=== PATIENT | female | born 1955 | race Caucasian/White ===

== ENCOUNTER 2023-01-13 01:11 | Day surgery (SDC) | payer MEDICARE, OTHER, SELFPAY ==
[2023-01-06 15:27] VITALS: BMI 32.0
--- NOTE | 2023-01-13 09:34 | P.HP_ITS ---
History of Present Illness History of Present Illness Consent: Risks, benefits, and alternatives have been discussed and questions answered. Patient agrees to proceed with procedure. Chief complaint: neoplasm screening Narrative: Marlena Culp is a 67 year old female Presents for screening colonoscopy. Patient's current weight appetite and bowel movements are normal. Patient denies abdominal pain. She has had no bleeding. Family history noncontributory . Patient has previous colonoscopy more than 10 years ago was unremarkable. Review of Systems Review of Systems: Review of systems noncontributory. [facility] Past Medical History Medical History Hepatitis C antibody test negative (03/07/17) Family History Family History Father Family history of elevated blood lipids Family history of coronary artery disease Social History Social History (Updated 08/29/22 @ 09:06 by Cadence Harris [facility]) Smoking status: Never smoker Second hand tobacco smoke exposure: No Alcohol intake: current Substance use: never Substance use type: does not use Lack of Transportation: No Lack of Food: Never True Current Housing: I Have Housing Concerned About Future Housing: No Difficulty Paying Gas/Electric Bills: No Difficulty Paying for Meds: No Currently Unemployed: No Education: Master's Degree or Higher Difficulty w/ Childcare or Family Care: No Living arrangements: with family Spiritual care concerns: No Meds Home Medications and Allergies Home Medications Medication Instructions Recorded Confirmed Type simvastatin 20 mg tablet 20 mg PO DAILY #90 tabs 12/01/22 01/06/23 Rx Calcium 600 + D(3) 1 cap PO DAILY 01/06/23 01/06/23 History Classic 1 cap PO DAILY 01/06/23 01/06/23 History lisinopril 10 mg tablet 10 mg PO DAILY 01/06/23 01/06/23 History Allergies Allergy/AdvReac Type Severity Reaction Status Date / Time No Known Allergies Allergy Verified 01/13/23 09:34 Exam Narrative: Physical exam reveals patient to be alert. Vital signs stable. HEENT exam is unremarkable. Patient is anicteric. Lungs are clear to auscultation and percussion. Heart is without murmur or extra sounds. Abdomen bowel sounds are present soft nontender with no organomegaly. Digital external rectal exam is normal. Assessment and Plan Assessment and plan (1) Screening for colon cancer: Code(s): Z12.11 - Encounter for screening for malignant neoplasm of colon Status: Acute Assessment and Plan: Patient presents for screening colonoscopy. She appears to be at average risk for polyps. Further recommendations may be given after endoscopy.
[2023-01-13 09:35] VITALS: BP 124/88; PULSE 81; RESP 20; TEMP 35.9; O2SAT 99; BMI 32.1
[2023-01-13] MEDS: LACTATED RINGERS 1,000 ML 150 ML IV CONT (09:48)
--- NOTE | 2023-01-13 10:20 | WPDANESEPPF ---
Anes - Initial Pre Proc Eval Procedure: Operation Date: 01/13/23 11:00 Proposed Procedures p Screening Colonoscopy - Tna Coates MD Date/Time: 01/13/23 10:20 Surgeon: Tan Coates MD Pre Op Diagnosis: neoplasm screening Patient Data Age: 67 Gender: F Height: 1.57 m Weight: 79.7 kg Last Vital Signs Temp 96.7 F L 01/13/23 09:35 Pulse 81 01/13/23 09:35 Resp 20 01/13/23 09:35 BP 124/88 01/13/23 09:35 Pulse Ox 99 01/13/23 09:35 O2 Del Method Room Air 01/13/23 09:35 Allergies Allergy/AdvReac Type Severity Reaction Status Date / Time No Known Allergies Allergy Verified 01/13/23 09:34 Home Medications Medication Instructions Recorded Confirmed Type simvastatin 20 mg tablet 20 mg PO DAILY #90 tabs 12/01/22 01/13/23 Rx Calcium 600 + D(3) 1 cap PO DAILY 01/06/23 01/13/23 History Classic 1 cap PO DAILY 01/06/23 01/13/23 History lisinopril 10 mg tablet 10 mg PO DAILY 01/06/23 01/13/23 History Patient hx anesthesia problems: none Family hx anesthesia problems: none Results Review: All pre-operative results and documents have been reviewed as part of the pre-operative evaluation. [facility] Past Medical History Medical History Hepatitis C antibody test negative (03/07/17) Family History Family History Father Family history of elevated blood lipids Family history of coronary artery disease Social History Social History (Updated 08/29/22 @ 09:06 by Cadence Harris CMA) Smoking status: Never smoker Second hand tobacco smoke exposure: No Alcohol intake: current Substance use: never Substance use type: does not use Lack of Transportation: No Lack of Food: Never True Current Housing: I Have Housing Concerned About Future Housing: No Difficulty Paying Gas/Electric Bills: No Difficulty Paying for Meds: No Currently Unemployed: No Education: Master's Degree or Higher Difficulty w/ Childcare or Family Care: No Living arrangements: with family Spiritual care concerns: No Anes - Eval Final PreProcedure Day of Procedure 01/13/23 10:20 Patient weight: normal Heart: regular rate and rhythm Lungs: clear to auscultation Airway: Mallampati scale class II Neurological: alert and oriented Last oral intake: >/= 8 hours ASA classification: II Emergent: no Anesthetic plan: proceed Anesthesia type and monitoring: general GIVS and standard monitoring Results Review: All pre-operative results and documents have been reviewed as part of the pre-operative evaluation. Informed Consent: The patient's anesthetic plan and its attendant risks and benefits were discussed with the patient/family/POA. Questions were solicited and answers provided to the satisfaction of the patient/family/POA.
[2023-01-13 10:43] VITALS: BP 107/64; PULSE 68; RESP 15; O2SAT 99
[2023-01-13 10:53] VITALS: BP 101/67; PULSE 59; RESP 15; O2SAT 99
[2023-01-13 11:03] VITALS: BP 124/74; PULSE 64; RESP 15; O2SAT 99
== END 2023-01-13 11:17 | disposition home or self-care (01) ==
PROVIDERS: PCP Family Medicine; Visit Provider Internal Medicine Gastroenterology
PROC: 0DJD8ZZ Inspection of Lower Intestinal Tract, Via Natural or Artificial Opening Endoscopic (ICD-10-PCS; CPT 45378; principal; 2023-01-13 11:00)
DX: Z12.11 Encounter for screening for malignant neoplasm of colon (principal); K64.8 Other hemorrhoids
CPT/HCPCS: G0121; J2704; J7120